=== PATIENT | female | born 1975 | race Caucasian/White ===

== ENCOUNTER 2017-08-07 08:27 | Inpatient (IN) | payer BC ==
[2017-08-07] MEDS: SOD CHLORIDE 0.9% 100 ML, TRANEXAMIC ACID 3,000 MG IRR (06:00)
[2017-08-07] MEDS: CEFAZOLIN 2 GM/50 ML (PMX) 50 ML IVPB (06:00)
[2017-08-07] MEDS: TRANEXAMIC ACID 1,000 MG in DEXTROSE 5% 100 ML IVPB (06:00)
[~2017-08-07 08:27] MED LIST: BUPIVACAINE 0.5% (SDV) 30 ML, morphine SULFATE (PF) 8 MG, EPINEPHrine 0.3 MG, KETOROLAC... IRR; EPHEDrine SULFATE 50 MG/5 ML SYG
[2017-08-07] MEDS: GABAPENTIN 300 MG CAP PO ×2 (10:45→21:07)
[2017-08-07] MEDS: traMADol 50 MG TAB PO (10:45)
[2017-08-07] MEDS: DEXAMETHASONE 1 MG TAB PO (10:46)
[2017-08-07] MEDS ORDERED: CA CHLORIDE 10% 10 ML SYRINGE (12:25)
[2017-08-07] MEDS ORDERED: THROMBIN 5000 UNIT VIAL (12:25)
[2017-08-07] MEDS ORDERED: MIDAZOLAM 1 MG/ML 2 ML INJ (12:49)
[2017-08-07] MEDS ORDERED: BUPIVACAINE 0.75%/DEXT (SPINAL) 2 ML INJ (12:49)
[2017-08-07] MEDS ORDERED: morphine SULFATE/PF (10 MG/10 ML) INJ (12:53)
[2017-08-07] MEDS ORDERED: PHENYLephrine (100 MCG/ML) 5ML SYG (13:08)
[2017-08-07] MEDS: POLYMYXIN/BACITRACIN 1L IRRIG (13:18)
[2017-08-07] MEDS ORDERED: ONDANSETRON 4 MG INJ (13:22)
[2017-08-07] MEDS ORDERED: PROPOFOL 20 ML (13:22)
[2017-08-07] MEDS ORDERED: ROCURONIUM 50 MG INJ (13:22)
[2017-08-07] MEDS ORDERED: DEXAMETHASONE 4 MG/ML 1 ML INJ (13:22)
[2017-08-07] MEDS ORDERED: CEFAZOLIN 1 GM INJ (13:22)
[2017-08-07] MEDS ORDERED: SUCCINYLCHOLINE CHLORIDE 100 MG/5 ML SYG IV (13:22)
[2017-08-07] MEDS ORDERED: LIDOCAINE 100 MG SYRINGE (13:22)
[2017-08-07] MEDS ORDERED: SUGAMMADEX SODIUM 200 MG/2 ML VIAL IV (13:22)
[2017-08-07] MEDS ORDERED: DIPHENHYDRAMINE 50 MG INJ IV ×2 (14:00→15:00)
[2017-08-07] MEDS ORDERED: FENTAnyl 50 MCG/ML VIAL IV (14:00)
[2017-08-07] MEDS ORDERED: HYDROmorphONE (0.2 MG/ML) 10ML SYG IV (14:00)
[2017-08-07] MEDS ORDERED: ALBUTEROL 0.083% (NEB) 2.5 MG/3 ML AMP HHN (14:00)
[2017-08-07] MEDS ORDERED: MEPERIDINE 25 MG INJ IV (14:00)
[2017-08-07] MEDS ORDERED: DEXTROSE 50% 50 ML SYRINGE (14:10)
[2017-08-07] MEDS ORDERED: MAGNESIUM HYDROXIDE 30ML CUP PO (15:00)
[2017-08-07] MEDS ORDERED: ACETAMINOPHEN 500 MG TAB PO (15:00)
[2017-08-07] MEDS: MIDAZOLAM 1 MG/ML 2 ML INJ IV (15:28)
[2017-08-07] MEDS: CEFAZOLIN 1 GM/50 ML (PMX) 50 ML IVPB ×2 (15:38→23:09)
[2017-08-07] MEDS: ONDANSETRON 4 MG INJ IV ×2 (15:40→21:01)
[2017-08-07] MEDS: TRANEXAMIC ACID 1,000 MG in DEXTROSE 5% 100 ML IV (15:48)
[2017-08-07] MEDS ORDERED: ONDANSETRON 4 MG INJ IV (16:00)
[2017-08-07 16:24] LABS: WHITE BLOOD COUNT 16.9 10^3/ul (4.8-10.8)
[2017-08-07 16:24] LABS: ABNORMAL IP MESSAGE 1; HEMOGLOBIN 11.8 g/dl (12.0-16.0); MEAN CORPUSCULAR HEMOGLOBIN 31.6 pg (29.0-33.0); MEAN CORPUSCULAR HGB CONC 32.8 g/dl (32.0-37.0); MEAN CORPUSCULAR VOLUME 96.5 fl (82.0-101.0); MEAN PLATELET VOLUME 10.7 fl (7.4-10.4); PLATELET COUNT 218 10^3/UL (140-415); RED BLOOD COUNT 3.73 10^6/ul (4.20-5.40)
[2017-08-07] MEDS: PROMETHAZINE 25 MG SUPP PR (16:28)
[2017-08-07] MEDS: HYDROmorphONE (0.2 MG/ML) 10ML SYG IV ×4 (16:28→16:59)
[2017-08-07 16:29] LABS: POSITIVE DIFF @See below
[2017-08-07 16:31] LABS: ADD MAN DIFF? YES; HOLD TRANSMISSIONS 1
[2017-08-07] MEDS: LACTATED RINGER'S 1,000 ML IV (16:31)
[2017-08-07 16:53] LABS: BAND NEUTROPHILS #M 0.6 10^3/ul (0.0-0.6); BAND NEUTROPHILS % (M) 4 % (0-4); EOSINOPHILS % (M) 1 % (0-7); GIANT THROMBO% (M) 1 % (0-0); LYMPHOCYTES #M 0.1 10^3/ul (0.8-2.9); LYMPHOCYTES % (M) 1 % (15-51); MONOCYTE #M 0.1 10^3/ul (0.3-0.9); MONOCYTES % (M) 1 % (0-11); PLATELET ESTIMATE NORMAL; POLYCHROMASIA 1+ (0-0); SEG NEUT #M 15.8 10^3/ul (1.6-7.5); SEGMENTED NEUTROPHILS (M) % 93 % (39-77); SMUDGE%M 2 % (0-0)
[2017-08-07] MEDS: FENTAnyl 50 MCG/ML VIAL IV ×2 (17:59→18:36)
[2017-08-07] MEDS: morphine 2 MG INJ IV ×2 (20:05→22:06)
[2017-08-07] MEDS: OXYCODONE/ACETAMINOPHEN (5/325) TAB PO (21:03)
[2017-08-07] MEDS: SENNA/DOCUSATE NA (8.6MG/50MG) TAB PO (21:10)
[2017-08-07] MEDS: DEXAMETHASONE 2 MG TAB PO (21:11)
[2017-08-07] MEDS: KETOROLAC 15 MG INJ IV (21:15)
[2017-08-07] MEDS: ZOLPIDEM 5 MG TAB PO (23:12)
[2017-08-08] MEDS: morphine 2 MG INJ IV ×4 (00:20→11:44)
[2017-08-08] MEDS: OXYCODONE/ACETAMINOPHEN (5/325) TAB PO ×5 (01:19→22:07)
[2017-08-08] MEDS: DEXAMETHASONE 2 MG TAB PO ×4 (01:20→19:58)
[2017-08-08] MEDS: LACTATED RINGER'S 1,000 ML IV ×3 (02:13→20:59)
[2017-08-08] MEDS: KETOROLAC 15 MG INJ IV ×2 (03:04→08:59)
[2017-08-08 05:31] LABS: ADD MAN DIFF? NO
[2017-08-08 05:46] LABS: WHITE BLOOD COUNT 14.5 10^3/ul (4.8-10.8)
[2017-08-08 05:46] LABS: ABNORMAL IP MESSAGE 1; BASOPHILS % 0.1 % (0.0-2.0); HEMATOCRIT 28.8 % (37.0-47.0); HEMOGLOBIN 9.5 g/dl (12.0-16.0); LYMPHOCYTES # 0.4 10^3/ul (0.8-2.9); LYMPHOCYTES % 2.6 % (15.0-51.0); MEAN CORPUSCULAR HEMOGLOBIN 32.2 pg (29.0-33.0); MEAN CORPUSCULAR VOLUME 97.6 fl (82.0-101.0); MEAN PLATELET VOLUME 11.7 fl (7.4-10.4); MONOCYTE # 0.7 10^3/ul (0.3-0.9); MONOCYTES % 4.8 % (0.0-11.0); NEUTROPHIL # 13.3 10^3/ul (1.6-7.5); PLATELET COUNT 193 10^3/UL (140-415); RED BLOOD COUNT 2.95 10^6/ul (4.20-5.40); RED CELL DISTRIBUTION WIDTH 13.2 % (11.5-14.5)
[2017-08-08 05:51] LABS: POSITIVE DIFF @See below
[2017-08-08] MEDS: CEFAZOLIN 1 GM/50 ML (PMX) 50 ML IVPB (07:08)
[2017-08-08] MEDS: HYDROmorphONE 0.5 MG/0.5 ML SYG IV ×7 (07:13→23:28)
[2017-08-08] MEDS: SENNA/DOCUSATE NA (8.6MG/50MG) TAB PO ×2 (08:10→21:18)
[2017-08-08] MEDS: BUPROPION (XL) 150 MG TAB PO (08:10)
[2017-08-08] MEDS: ASPIRIN 81 MG TAB PO (08:58)
[2017-08-08] MEDS: LORAZEPAM 1 MG TAB PO ×2 (08:58→21:18)
[2017-08-08] MEDS: PROMETHAZINE 12.5 MG SUPP PR (13:12)
[2017-08-08] MEDS: GABAPENTIN 300 MG CAP PO (21:18)
[2017-08-08] MEDS: ZOLPIDEM 5 MG TAB PO (23:29)
[2017-08-08] MEDS ORDERED: PROMETHAZINE 12.5 MG SUPP PR (23:30)
[2017-08-09] MEDS: HYDROmorphONE 0.5 MG/0.5 ML SYG IV ×4 (01:33→13:40)
[2017-08-09] MEDS: OXYCODONE/ACETAMINOPHEN (5/325) TAB PO ×3 (02:07→11:10)
[2017-08-09 05:16] LABS: ADD MAN DIFF? NO
[2017-08-09 05:18] LABS: WHITE BLOOD COUNT 11.8 10^3/ul (4.8-10.8)
[2017-08-09 05:18] LABS: BASOPHILS % 0.3 % (0.0-2.0); EOSINOPHILS % 0.1 % (0.0-7.0); HEMATOCRIT 25.2 % (37.0-47.0); LYMPHOCYTES # 1.2 10^3/ul (0.8-2.9); LYMPHOCYTES % 10.5 % (15.0-51.0); MEAN CORPUSCULAR HEMOGLOBIN 31.1 pg (29.0-33.0); MEAN CORPUSCULAR HGB CONC 31.7 g/dl (32.0-37.0); MEAN CORPUSCULAR VOLUME 98.1 fl (82.0-101.0); MEAN PLATELET VOLUME 11.5 fl (7.4-10.4); MONOCYTE # 1.1 10^3/ul (0.3-0.9); MONOCYTES % 9.1 % (0.0-11.0); NEUTROPHIL # 9.4 10^3/ul (1.6-7.5); NEUTROPHILS % 79.6 % (39.0-77.0); PLATELET COUNT 177 10^3/UL (140-415); RED BLOOD COUNT 2.57 10^6/ul (4.20-5.40); RED CELL DISTRIBUTION WIDTH 13.6 % (11.5-14.5)
[2017-08-09] MEDS: LORAZEPAM 1 MG TAB PO (05:38)
[2017-08-09] MEDS: LACTATED RINGER'S 1,000 ML IV (06:59)
[2017-08-09] MEDS: SENNA/DOCUSATE NA (8.6MG/50MG) TAB PO (08:47)
[2017-08-09] MEDS: ASPIRIN 81 MG TAB PO (08:47)
[2017-08-09] MEDS: BUPROPION (XL) 150 MG TAB PO (08:48)
[2017-08-09] MEDS: KETOROLAC 15 MG INJ IV (09:09)
== END 2017-08-09 15:40 | disposition home or self-care (01) | DRG 470 ==
LOC: REC 08:27 → MS1 18:25
PROVIDERS: Orthopaedic Surgery
PROC: 0SRB04A Replacement of Left Hip Joint with Ceramic on Polyethylene Synthetic Substitute, Uncemented, Open Approach (ICD-10-PCS; principal; 2017-08-07 12:00)
DX: M16.52 Unilateral post-traumatic osteoarthritis, left hip (principal)
CPT/HCPCS: 72170; 73530; 82962; 84703; 85025; 86999; 87086; 97110; 97116; 97163; 97530